=== PATIENT | female | born 1940 | race Caucasian/White ===

== ENCOUNTER 2016-09-03 06:16 | Emergency (ER) | payer MEDICARE ==
--- NOTE | ~2016-09-03 | CR72 ---
[facility] A Service of [facility] & [facility] RADIOLOGY TEXT RESULTS PATIENT: FAB WALDEN LOCATION: SED : 39 UNIT #: [id number] AGE: [address]: Pool Swain MD SEX: F ORDER DR: [id number] [address] [address] [id number] E MR#: [id number] Acc #: [id number] NAME: FAB WALDEN : 1940 SEX: F STUDY DATE/TIME: 09/03/2016 6:52 UNIT: SED ROOM: STUDY DESCRIPTION: CR Chest Single View Portable Attending Physician: Pool Swain M.D. Ordering Physician: Pollo Golden M.D. MEDICAL IMAGING REPORT This report is preliminary unless electronic signature is present. EXAM Portable chest, one view, 09/03/2016 COMPARISON 07/18/2015 HISTORY Short of air. Chest tightness for 2 weeks. FINDINGS There is a mzmkw-dj-awhpxora left pleural effusion. There is mild vascular congestion. No other consolidation is seen and there is no pneumothorax. Question mild cardiomegaly. Dictated by... Jarred Arroyo M.D. THIS IS AN ELECTRONICALLY VERIFIED REPORT Jarred Arroyo M.D. at 09/03/2016 3:57 PM TEV/aa TD: 09/03/2016 13:39 JOB #: [id number] MEDICAL IMAGING REPORT Page 1 of 1
[2016-09-03] MEDS ORDERED: METOPROLOL SUCC50 MG PO (06:26)
[2016-09-03] MEDS ORDERED: LASIX20 MG PO (06:27)
[2016-09-03] MEDS ORDERED: PRINIVIL20 M1 PO (06:27)
[2016-09-03] MEDS ORDERED: AMITRIPTYLINE H50 MG PO (06:28)
[2016-09-03] MEDS ORDERED: SULAR34 MG PO (06:28)
[2016-09-03] MEDS ORDERED: ZITHROMAX1 GM PO (08:12)
[2016-09-03] MEDS ORDERED: MUCINEX100 MG PO (08:13)
== END 2016-09-03 08:21 | disposition home or self-care (01) ==
LOC: SED 06:16
DX: J20.9 Acute bronchitis, unspecified (principal); J90 Pleural effusion, not elsewhere classified; I10 Essential (primary) hypertension; F41.9 Anxiety disorder, unspecified; F17.200 Nicotine dependence, unspecified, uncomplicated; Z88.6 Allergy status to analgesic agent; Z79.899 Other long term (current) drug therapy
CPT/HCPCS: 71010; 99284

== ENCOUNTER 2016-09-19 00:19 | Emergency (ER) | payer MEDICARE ==
--- NOTE | ~2016-09-19 | EKG ---
PATIENT: FAB WALDEN UNIT #: [id number] Ventricular Rate: 78 BPM Atrial Rate: 78 BPM P-R Interval: 124 ms QRS Duration: 116 ms Q-T Interval: 434 ms QTC Calculation(Bezet): 494 ms P [place]: 57 degrees Calculated R [place]: 3 degrees Calculated T [place]: -11 degrees Diagnosis Line: Normal sinus rhythm Diagnosis Line: Inferior-posterior infarct , age undetermined Diagnosis Line: Abnormal ECG Diagnosis Line: No previous ECGs available Diagnosis Line: Confirmed by MELITA ARRIOLA MD ([id number]) on Diagnosis Line: 09/20/2016 8:03:41 AM INTERPRETING MD: FLAKO NARAYANAN
--- NOTE | ~2016-09-19 | CR72 ---
[facility] A Service of [facility] & [facility] RADIOLOGY TEXT RESULTS PATIENT: FAB WALDEN LOCATION: SED : 39 UNIT #: [id number] AGE: [address]: Pollo Golden MD SEX: F ORDER DR: [id number] [address] [address] [id number] E MR#: [id number] Acc #: [id number] NAME: FAB WALDEN : 1940 SEX: F STUDY DATE/TIME: 09/19/2016 0:54 UNIT: SED ROOM: STUDY DESCRIPTION: CR Chest Single View Portable Attending Physician: Pollo Golden M.D. Ordering Physician: Pollo Golden M.D. MEDICAL IMAGING REPORT This report is preliminary unless electronic signature is present. EXAM Single view chest INDICATION Shortness of air and dyspnea. Hypoxia. 1-day duration. FINDINGS Single portable AP view chest compared with 09/03/2016. The heart and mediastinal contours are unchanged. Heart is enlarged. There is mild interstitial edema and bibasilar airspace opacity/pleural effusions. The effusions appear to have slightly increased since the prior study. IMPRESSION 1. Increasing bibasilar airspace opacities and/or pleural effusions. 2. Increased interstitial markings suggest a component of interstitial edema. This appearance is fairly similar to the prior study. Dictated by... Lee Toribio M.D. THIS IS AN ELECTRONICALLY VERIFIED REPORT Lee Toribio M.D. at 09/19/2016 3:34 AM GUMARO/alicia TD: 09/19/2016 02:44 JOB #: [id number] MEDICAL IMAGING REPORT Page 1 of 1
[~2016-09-19 00:19] MED LIST: AMITRIPTYLINE H50 MG PO; LASIX20 MG PO; METOPROLOL SUCC50 MG PO; MUCINEX100 MG PO; PRINIVIL20 M1 PO; SULAR34 MG PO; ZITHROMAX1 GM PO
== END 2016-09-19 02:18 | disposition left against medical advice (07) ==
LOC: SED 00:19
DX: J44.1 Chronic obstructive pulmonary disease with (acute) exacerbation (principal); I11.0 Hypertensive heart disease with heart failure; I50.9 Heart failure, unspecified; F17.200 Nicotine dependence, unspecified, uncomplicated; Z88.8 Allergy status to other drugs, medicaments and biological substances; Z88.1 Allergy status to other antibiotic agents; Z79.899 Other long term (current) drug therapy
CPT/HCPCS: 71010; 93005; 94640; 99285

== ENCOUNTER 2016-11-03 12:50 | Inpatient (IN) | payer MEDICARE ==
[~2016-11-03] VITALS: Ht 165.1 cm; Wt 74.6 kg
--- NOTE | ~2016-11-03 | CR63 ---
[facility] A Service of [facility] / [facility] RADIOLOGY TEXT RESULTS PATIENT: FAB WALDEN LOCATION: A 314-01 : 39 UNIT #: [id number] AGE: [address]: Ke Walters MD SEX: F ORDER DR: [id number] [address] [address] [id number] E MR#: [id number] Acc #: [id number] NAME: FAB WALDEN : 1940 SEX: F STUDY DATE/TIME: 11/03/2016 15:23 UNIT: SED ROOM: STUDY DESCRIPTION: CR Chest 2 View Attending Physician: Noam Harden M.D. Ordering Physician: Noam Harden M.D. MEDICAL IMAGING REPORT This report is preliminary unless electronic signature is present. EXAM PA and lateral radiographs of the chest HISTORY COPD. Congestion, cough Friday. FINDINGS PA and lateral radiographs of the chest are presented. Comparison 09/19/2016. Poor quality examination. On the lateral view, there are triangular radiodensities superimposed over the upper thorax clearly extrinsic to the patient but of unclear exact etiology. Clothing artifacts overlie the frontal image. Degenerative changes in the spine. No acute-appearing bony abnormality. Stable cardiac enlargement. Lungs are well inflated. Airspace disease bilateral lower lung zones. This may represent some degree of atelectasis. Bibasilar pneumonia is a strong consideration. There is a left pleural effusion and a smaller, probable right posterior pleural effusion. Airspace disease in the lower lung zones decreased on the right compared to prior examination. Short-interval followup to confirm complete resolution of findings is strongly recommended. If findings do not resolve in the near-term with treatment for presumed bilateral bibasilar pneumonia, then CT examination would be recommended for additional characterization. Stable appearance of densely calcified granuloma right lung base posteriorly. Dictated by... Pollo Logan M.D. THIS IS AN ELECTRONICALLY VERIFIED REPORT Pollo Logan M.D. at 11/04/2016 3:16 PM [facility] A Service of [facility] RADIOLOGY TEXT RESULTS PATIENT: FAB WALDEN LOCATION: A 314-01 : 39 UNIT #: [id number] AGE: [address]: Ke Walters MD SEX: F ORDER DR: Sotero TD: 11/03/2016 18:27 JOB #: [id number] MEDICAL IMAGING REPORT Page 1 of 1
--- NOTE | ~2016-11-03 | CO ---
Unit #: [id number] #: [id number] Patient: FAB WALDEN [id number] [facility] [address] [facility]. [place], [place] [address] [id number] I MR#: [id number] NAME: FAB WALDEN ROOM: 314 Age: 76 Sex: F Admission Date: 11/03/2016 : 1940 Attending Physician: Ke Walters M.D. Consultation Date: 11/04/2016 CONSULTATION REPORT HISTORY OF PRESENT ILLNESS This is a 76-year-old with history of CHF, hypertension, and anxiety. Anticoagulation was discharged after congestive heart failure exacerbation. The patient was at [place] for 2.5 weeks ago, had right middle lobe pneumonia, congestive heart failure exacerbation, and acute CHF. Now, the patient had persistent shortness of breath, really no significant improvement at home, and is currently on treatment for HCAP with cefepime and vancomycin. Chest x-ray shows bibasilar infiltrates. Airspace disease in bilateral lower lobes. Procalcitonin is elevated to 2.35. The patient also has BNP of 563. So, therefore she is being admitted for COPD exacerbation. Hospital acquired pneumonia and CHF exacerbation. PAST MEDICAL HISTORY Significant for history of pneumonia, history of COPD, sees Dr. Miranda, history of chronic respiratory failure on 2 L of oxygen, congestive heart failure with unknown ejection fraction, hypertension, anxiety with panic attacks and agoraphobia, chronic anticoagulation. PAST SURGICAL HISTORY None. SOCIAL HISTORY The patient quit smoking several weeks ago, walks with a walker. She denies any alcohol. Denies polysubstance use. FAMILY HISTORY Noncontributory. ALLERGIES The patient is allergic to aspirin. MEDICATION RECONCILIATION Includes Lasix 40 mg daily, metoprolol 25 mg daily, Valium 5 mg every morning and 2.5 mg at bedtime, K-Dur 20 mEq daily, warfarin 2 mg daily, amiodarone 200 mg daily. PHYSICAL EXAMINATION VITAL SIGNS: T-current 97.8, pulse 59, respiratory rate 20, saturation 95%, blood pressure 126/47. HEENT: Extraocular movements are intact. CHEST: Clear to auscultation bilaterally. CARDIOVASCULAR: Regular rate. No gallop. ABDOMEN: Soft, nontender, and nondistended. Unit #: [id number] #: [id number] Patient: FAB WALDEN EXTREMITIES: Edema +1. LABORATORY DATA Procalcitonin 2.35. BNP is 563. BUN and creatinine 23/2.0. Calcium 8.6, albumin 3.0, glucose 156, bicarb 27. ASSESSMENT CBC is 6.3, hemoglobin 10.9, and platelets of 212. 1. Chronic obstructive pulmonary disease exacerbation. 2. Congestive heart failure exacerbation. 3. Pneumonia. 4. Chronic kidney disease, unchanged, appears to be at baseline. The CK, CK-MB, and troponin are negative x2. Continue to treat pneumonia. Continue to treat antibiotics. We are going to do a viral respiratory swab. We are going to do an MRSA nasal swab. We are going to do a portable chest x-ray in a.m. and we are going to continue blood count and multiple cultures. 5. We are going to add budesonide and 3% saline to help with expectoration. Thank you very much for this consult and allowing us to participate in the care of this patient. Please page me at [phone] if you have any questions. Dictated by... Gold Whitman M.D. MANUEL/mendel TD: 11/05/2016 06:41 JOB #: [id number] CONSULTATION REPORT Page 1 of 1 X Casimiro Whitman MD CONSULTATION REPORT
--- NOTE | ~2016-11-03 | CR72 ---
[facility] A Service of [facility] & [facility] RADIOLOGY TEXT RESULTS PATIENT: FAB WALDEN LOCATION: [facility] 314-01 : 39 UNIT #: [id number] AGE: [address]: Ke Walters MD SEX: F ORDER DR: [id number] [facility] [address] [facility]. [place], [place] [address] [id number] I MR#: [id number] Acc #: [id number] NAME: FAB WALDEN : 1940 SEX: F STUDY DATE/TIME: 11/05/2016 5:36 [facility]: [facility] STUDY DESCRIPTION: CR Chest Single View Portable Attending Physician: Ke Walters M.D. Ordering Physician: Ke Walters M.D. MEDICAL IMAGING REPORT This report is preliminary unless electronic signature is present EXAM Portable AP view of the chest COMPARISON November 03, 2016, September 19, 2016, September 03, 2016. INDICATION 76-year-old female with dyspnea, cough, and lower extremity edema for 2 days. History of COPD, CHF, and atrial fibrillation. Hypertension. FINDINGS There is improved opacity in the right lung base with improved aeration of the right lung, most in keeping with resolving atelectasis. Large calcified granuloma again seen in the right lung base. There is also improved aeration at the left lung base, likely reflecting improving atelectasis, or possibly there could be improving pulmonary edema in both lung bases, as there is diffuse pulmonary vascular congestion and cardiomegaly. Small left pleural effusion may be slightly diminished from comparison of 2 days ago. Dictated by... Fer Edgar M.D. THIS IS AN ELECTRONICALLY VERIFIED REPORT Fer Edgar M.D. at 11/08/2016 11:24 AM Tuan TD: 11/05/2016 12:34 JOB #: [id number] MEDICAL IMAGING REPORT Page 1 of 1 COPY
--- NOTE | ~2016-11-03 | HP ---
Unit #: [id number] #: [id number] Patient: FAB WALDEN [id number] [address] [id number] I MR#: [id number] NAME: FAB WALDEN ROOM: 314 Age: 76 Sex: F Admission Date: 11/03/2016 : 1940 Attending Physician: Ke Walters M.D. HISTORY AND PHYSICAL ADDENDUM ADDITIONAL INFORMATION PAST MEDICAL HISTORY Atrial fibrillation on chronic anticoagulation with Coumadin. Dictated by Miranda Preston/mayank TD: 11/04/2016 06:38 JOB #: [id number] HISTORY AND PHYSICAL Page 1 of 1 X Lisha Duvall MD HISTORY AND PHYSICAL
--- NOTE | ~2016-11-03 | EKG ---
PATIENT: FAB WALDEN UNIT #: [id number] Ventricular Rate: 74 BPM Atrial Rate: 74 BPM P-R Interval: 134 ms QRS Duration: 122 ms Q-T Interval: 504 ms QTC Calculation(Bezet): 559 ms P [place]: 4 degrees Calculated R [place]: 73 degrees Calculated T [place]: 12 degrees Diagnosis Line: Normal sinus rhythm Diagnosis Line: Indeterminate axis Diagnosis Line: Right bundle branch block Diagnosis Line: Lateral infarct , age undetermined Diagnosis Line: Inferior infarct (cited on or before 19-SEP-2016) Diagnosis Line: Abnormal ECG Diagnosis Line: When compared with ECG of 19-SEP-2016 01:01, Diagnosis Line: Right bundle branch block is now Present Diagnosis Line: Lateral infarct is now Present Diagnosis Line: Confirmed by MELITA ARRIOLA MD ([id number]) on Diagnosis Line: 11/06/2016 8:22:57 AM INTERPRETING MD: FLAKO NARAYANAN
--- NOTE | ~2016-11-03 | HP ---
Unit #: [id number] #: [id number] Patient: FAB WALDEN [id number] [facility]. [place], [place] [address] [id number] I MR#: [id number] NAME: FAB WALDEN ROOM: 314 Age: 76 Sex: F Admission Date: 11/03/2016 : 1940 Attending Physician: Lisha Duvall M.D. HISTORY AND PHYSICAL CHIEF COMPLAINT Congestion, cough. HISTORY OF PRESENT ILLNESS The patient is a 76-year-old female with past medical history of COPD, CHF, chronic respiratory failure, hypertension, anxiety, chronic anticoagulation, who presented to [facility] for evaluation of the above. Of note, the patient was [facility] for pneumonia (no records). She was discharged on prednisone and an unknown antibiotic which she completed as prescribed. The patient states that she has had at least a three-day history of worsening shortness of breath and productive cough. She denies any fever. No chest pain. She has noted increased swelling of her legs. She does not typically weigh herself. She does not know if she has gained weight. She states that her appetite has been good. She has been taking her medications as prescribed. In the emergency department, I was told that her oxygen saturation was in the seventies on room air. I do not see it documented in [facility]. On the triage sheet, it states that it was 95% on two liters. Chest x-ray shows bibasilar atelectasis versus infiltrate with bilateral pleural effusions. BNP was 563. Laboratory notable for BUN and creatinine of 20 and 2.1 respectively. She was given 125 mg of Solu-Medrol as well as a milligram of Ativan in the emergency department. She was sent to [facility] for evaluation and further treatment. PAST MEDICAL HISTORY 1. Admission to [facility] in September of 2016 for pneumonia (no records). She was discharged home on an unknown antibiotic as well as steroids which she took as prescribed. 2. COPD. The patient has see Dr. Miranda in the past but requests to see another pulmonary group. 3. Chronic respiratory failure on two liters of oxygen. 4. Congestive heart failure with unknown ejection fraction. 5. Hypertension. 6. Anxiety with panic attacks and agoraphobia. 7. Chronic anticoagulation. PAST SURGICAL HISTORY None. Unit #: [id number] #: [id number] Patient: FAB WALDEN SOCIAL HISTORY The patient states that she quit smoking a couple of weeks ago. She walks with a walker. HOME MEDICATIONS 1. Potassium 20 mEq daily. 2. Coumadin 2 mg daily. 3. Furosemide 40 mg daily. 4. Amiodarone 200 mg daily. 5. Diazepam 5 mg bid 6. Metoprolol 25 mg daily. Home medications will need to be reviewed and verified. ALLERGIES Aspirin. REVIEW OF SYSTEMS A complete review of systems is negative except as indicated in the HPI. PHYSICAL EXAMINATION GENERAL APPEARANCE: The patient is a female who is awake and alert, chronically ill appearing. VITAL SIGNS: Temperature 98.1. Pulse 76. Respirations 16. Blood pressure 144/69. Oxygen saturation 95% on two liters. HEENT: The head is atraumatic. Mucous membranes are moist. NECK: Supple. Trachea is midline. CARDIOVASCULAR: Regular rate and rhythm. LUNGS: Decreased breath sounds bilaterally. Breathing is mildly labored with conversation. ABDOMEN: Soft, nontender with bowel sounds present in all four quadrants. EXTREMITIES: 1+ pitting edema. NEUROLOGIC: The patient is awake and alert. She follows commands. PSYCHIATRIC: The patient is quite anxious. She is cooperative. SKIN: Of examined areas is warm and dry. DIAGNOSTIC STUDIES LABORATORY: Comprehensive metabolic panel notable for BUN and creatinine of 20 and 2.1 respectively. Complete blood count notable for hemoglobin of 11.9. Troponin is less than 0.05. Arterial blood gas shows pH of 7.46, pCO2 of 40, pO2 95. INR is 2.2. BNP 563. IMAGING: Chest x-ray shows bibasilar atelectasis versus infiltrate with bilateral pleural effusions. CARDIOVASCULAR: EKG shows normal sinus rhythm with rate of 74 beats per minute. ASSESSMENT The patient is a 76-year-old female with: 1. Acute on chronic respiratory failure, hypoxic. 2. COPD exacerbation with possible pneumonia. The patient received 125 mg of Solu-Medrol in the emergency department. 3. CHF exacerbation with bilateral pleural effusions. BNP is 563. The patient has an unknown ejection fraction. There is no echocardiogram in [facility]. 4. Acute kidney injury. The patient's creatinine is 2.1 with no baseline for comparison. Home medications will need to be reviewed Unit #: [id number] #: [id number] Patient: FAB WALDEN and verified. Furosemide is listed which could be contributing to acute kidney injury. 5. Hypertension. 6. Anxiety with history of agoraphobia and panic attacks. 7. Chronic anticoagulation with an INR of 2.2. PLAN 1. Admit to intermediate level. 2. Two gram sodium, 1800 mL fluid restricted, Heart Healthy diet, if passes bedside swallow. 3. Supplemental oxygen, two to four liters, for saturations greater than 92%. 4. DuoNeb q.4 hours. 5. Solu-Medrol 80 mg IV q.12 hours. 6. Vancomycin IV and Zosyn IV for possible healthcare-associated pneumonia pending further workup. I have not ordered tobramycin due to acute kidney injury. 7. Procalcitonin level. 8. Streptococcal and legionella urine antigens. 9. Mucinex 600 mg p.o. b.i.d. 10. 2-D echo for further evaluation of CHF. 11. Strict Is and Os. 12. Serial cardiac enzymes. 13. TSH. 14. Check CPK. 15. Consult Chest Medicine regarding acute on chronic respiratory failure, COPD, possible pneumonia. 16. Get records from [facility]. 17. Repeat labs in the morning including INR. 18. Additional workup and consultants based on above. Dictated by Miranda Preston/mayank TD: 11/04/2016 06:11 JOB #: [id number] HISTORY AND PHYSICAL Page 1 of 1 X Lisha Duvall MD X HISTORY AND PHYSICAL
--- NOTE | ~2016-11-03 | DS ---
Unit #: [id number] #: [id number] Patient: FAB WALDEN [id number] [facility]. [place], [place] [address] [id number] I MR#: [id number] NAME: FAB WALDEN ROOM: 314 Age: 76 Sex: F Admission Date: 11/03/2016 : 1940 Discharge Date: Attending Physician: Ke Walters M.D. DISCHARGE SUMMARY PRIMARY DIAGNOSIS Acute on chronic hypoxemic respiratory failure. SECONDARY DIAGNOSES 1. Chronic kidney disease stage 4 with a baseline creatinine of 2. 2. Acute on chronic diastolic heart failure. 3. Moderate to severe mitral regurgitation. 4. Possible pneumonia. 5. Chronic anxiety with panic attacks. 6. Atrial fibrillation. 7. Possible acute exacerbation of chronic obstructive pulmonary disease. HOSPITAL COURSE Patient was admitted to the hospital for worsening respiratory failure. The patient was stable on two to three liters of oxygen for over 24 hours prior to discharge. Her chest x-ray improved fairly rapidly leading me to suspect that the patient's valvular heart disease and diastolic heart failure exacerbation were the primary components leading to her worsening hypoxia. The patient was extensively counseled about sodium in her diet. Echocardiogram done at our hospital showed severe mitral regurgitation as opposed to one done at [place] last month which showed only mild to moderate. 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 I have advised the patient to follow up with the arabic translator that saw her at [place] or one of his partners as she reports that his partners' offices are closer and easier for her to get to. 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 Patient had significant anxiety and panic attacks which are the major contributors to her symptomatology normally. She asked me multiple times on multiple days to add Ativan to her home regime which I explained was probably not in her best interest and any such change would have to be made by the physician managing her current anxiety medication at home which she reports is nurse practitioner Jada Appiah. The patient does have chronic kidney disease with a creatinine of 2. This is unchanged from her recent hospitalization at [place] per my review of their records from September 2016. Patient denies having an established bed laster, and consideration should be made for outpatient referral. Overall, this patient has multiple chronic medical conditions including some very difficult to control anxiety and appears to live alone with minimal social support and only gets around by wheelchair and walker and Unit #: [id number] #: [id number] Patient: FAB WALDEN does not drive herself in town. All in all, the patient has somewhat limited ability to understand her complex medical conditions, especially the way that they interact, and patient will need close followup with her PCP to help minimize risks of recurrent hospitalizations. I have spent an extensive amount of time attempting to eligibility counselor the patient, although it is unclear how much is going to be retained. I tried to focus her on the importance of her sodium restriction and the importance of following up with Dr. Chu as the main topics at the time of discharge as it did not seem that she was holding onto everything that I was trying to tell her. Due to her multiple medical issues and her limited understanding of them and limited social support, she is a high risk for readmission. C[employer] TIP[employer] Dr. Gold Whitman with Pulmonology. DISCHARGE DISPOSITION Home. DISCHARGE STATUS Stable. DISCHARGE ACTIVITY With her walker at all times. She may use the wheelchair that she already has as needed. DISCHARGE DIET A 2000 mg sodium restriction. DISCHARGE FOLLOWUP 1. With Dr. Eric Chu with Cardiology or one of his partners in two to four weeks. 2. With Dr. Miranda with Pulmonology in four to six weeks. 3. With nurse practitioner Jada Appiah in one week. DISCHARGE MEDICATIONS 1. Albuterol by nebulizer unit dose 3 mL q.4 hours p.r.n. shortness of breath. 2. Pulmicort 0.5 mg by nebulizer twice daily. 3. Prednisone 40 mg p.o. daily for 5 days. 4. Amiodarone 200 mg p.o. daily. 5. Coumadin 2 mg p.o. daily. 6. Valium 5 mg p.o. in the morning and 2.5 mg p.o. at bedtime. 7. Metoprolol succinate 25 mg p.o. daily. 8. Lasix 40 mg p.o. b.i.d. 9. Potassium chloride 20 mEq p.o. daily. 10. Omnicef 300 mg p.o. twice daily for 5 days. 1. Dictated by... Miranda Lowry/kingston TD: 11/05/2016 17:24 JOB #: [id number] Unit #: [id number] #: [id number] Patient: FAB WALDEN DISCHARGE SUMMARY Page 1 of 1 X eK Walters MD X DISCHARGE SUMMARY
[2016-11-03 14:13] LABS: BASOPHIL# 0.1 X10e3 (0-0.3); BASOPHIL% 0.9 % (0-2.5); EOSINOPHIL# 0.1 X10e3 (0-0.7); EOSINOPHIL% 0.6 % (0.0-7.0); HEMATOCRIT 35.9 % (35.0-45.0); HEMOGLOBIN 11.9 gm/dL (12.0-16.0); LYMPHOCYTE# 1.2 X10e3 (1.0-3.5); LYMPHOCYTE% 14.1 % (17.0-45.0); MEAN CELL VOLUME 89.2 FL (83-96); MEAN CORPUSCULAR HEMOGLOBIN 29.5 PG (28-34); MEAN CORPUSCULAR HGB CONC 33.1 g/dL (30-36); MEAN PLATELET VOLUME 9.7 FL (6.5-11.5); MONOCYTE# 1.2 X10e3 (0-1.0); MONOCYTE% 14.1 % (3.0-12.0); NEUTROPHIL# 5.8 X10e3 (1.5-7.1); NEUTROPHIL% 70.3 % (40-75); PLATELET COUNT 225 X10e3 (140-420); RED BLOOD COUNT 4.02 X10e (3.90-5.30); WHITE BLOOD COUNT 8.3 X10e3 (4.0-10.5)
[2016-11-03 14:18] LABS: POC - CKMB 2.4 ng/mL (0.0-7.9); POC - TROPONIN <0.05 ng/mL (<=0.05)
[2016-11-03 14:36] LABS: DIFF IND NO
[2016-11-03 14:39] LABS: INR 2.2; PROTHROMBIN TIME (PATIENT) 24.5 SECONDS (9.5-12.4)
[2016-11-03 14:46] LABS: PARTIAL THROMBOPLASTIN TIME 31.3 SECONDS (25.6-38.1)
[2016-11-03 14:47] LABS: ARTERIAL BLOOD GAS CARBOXY HB 1.5 %sat (0.0-9.0); ARTERIAL BLOOD GAS HCO3 27.9 mmol/L
[2016-11-03 14:48] LABS: ALBUMIN SERUM 3.5 g/dL (3.5-5.0); BILIRUBIN, DIRECT 0.1 mg/dL (0.0-0.2); BILIRUBIN,INDIRECT 0.3 mg/dL (0.0-0.9); BILIRUBIN,TOTAL 0.4 mg/dL (0.2-2.0); BUN/CREATININE RATIO 9.52; CALCIUM SERUM 9.4 mg/dL (8.4-10.2); CREATININE SERUM 2.1 mg/dL (0.6-1.4); GLOM FILT RATE Estimated 22.1 mL/min (>60); POTASSIUM 4.2 mmol/L (3.5-5.1); PROTEIN TOTAL SERUM 7.3 g/dL (6.0-8.3)
[2016-11-03 14:49] LABS: ARTERIAL BLOOD GAS ALLEN TEST Y; ARTERIAL DRAW? YES
[2016-11-03 14:50] LABS: ARTERIAL BLOOD GAS ART SITE RIGHT RADIAL
[2016-11-03 16:20] LABS: POC - CKMB 2.5 ng/mL (0.0-7.9)
[2016-11-03 16:21] LABS: POC - TROPONIN <0.05 ng/mL (<=0.05)
[2016-11-03] MEDS ORDERED: METOPROLOL SUCC25 MG PO (23:00)
[2016-11-03] MEDS ORDERED: VALIUM2 M1 PO (23:02)
[2016-11-03] MEDS ORDERED: VALIUM2 MG PO (23:03)
[2016-11-03] MEDS ORDERED: K-DUR20 ME1 PO (23:03)
[2016-11-03] MEDS ORDERED: AMIODARONE HCL200 MG PO (23:04)
[2016-11-03] MEDS ORDERED: WARFARIN SODIUM2 M1 PO (23:04)
[2016-11-03 23:29] LABS: %MB 3.4 % (0.0-4.0); MB 3.2 ng/ml
[2016-11-04 02:33] LABS: BASOPHIL% 0.4 % (0-2.5); HEMATOCRIT 32.7 % (35.0-45.0); HEMOGLOBIN 10.9 gm/dL (12.0-16.0); LYMPHOCYTE# 0.5 X10e3 (1.0-3.5); MEAN CELL VOLUME 88.6 FL (83-96); MEAN CORPUSCULAR HEMOGLOBIN 29.6 PG (28-34); MEAN CORPUSCULAR HGB CONC 33.4 g/dL (30-36); MEAN PLATELET VOLUME 9.3 FL (6.5-11.5); MONOCYTE# 0.1 X10e3 (0-1.0); MONOCYTE% 2.3 % (3.0-12.0); NEUTROPHIL# 5.6 X10e3 (1.5-7.1); NEUTROPHIL% 89.3 % (40-75); PLATELET COUNT 212 X10e3 (140-420); RED BLOOD COUNT 3.69 X10e (3.90-5.30); RED CELL DISTRIBUTION WIDTH 13.9 % (11.0-15.5); WHITE BLOOD COUNT 6.3 X10e3 (4.0-10.5)
[2016-11-04 02:35] LABS: DIFF IND NO
[2016-11-04 03:15] LABS: BILIRUBIN,TOTAL 0.9 mg/dL (0.2-2.0); BUN/CREATININE RATIO 11.5; CALCIUM SERUM 8.6 mg/dL (8.4-10.2); GLOM FILT RATE Estimated 23.5 mL/min (>60)
[2016-11-04 03:20] LABS: %MB 4.1 % (0.0-4.0); MB 3.3 ng/ml
[2016-11-04 06:36] LABS: INR 1.9; PROTHROMBIN TIME (PATIENT) 20.4 SECONDS (10.0-11.7)
[2016-11-05 05:06] LABS: INR 2.5; PROTHROMBIN TIME (PATIENT) 27.4 SECONDS (10.0-11.7)
[2016-11-05 06:58] LABS: GLOM FILT RATE Estimated 23.5 mL/min (>60); POTASSIUM 4.5 mmol/L (3.5-5.1)
[2016-11-05] MEDS ORDERED: COMBIVENT U/D3 M1 INH (15:41)
[2016-11-05] MEDS ORDERED: PULMICORT0.5 MG/21 INH (15:43)
[2016-11-05] MEDS ORDERED: PREDNISONE PO (15:44)
[2016-11-05] MEDS ORDERED: OMNICEF300 M1 PO (15:47)
[2016-12-12] MEDS ORDERED: ATIVAN (20:01)
== END 2016-11-05 18:36 | disposition home or self-care (01) | DRG 291 ==
LOC: SED 12:50 → C3A PCU 17:29 → SED 17:29 → C3A PCU 19:40
PROVIDERS: Emergency Medicine; Family Medicine
PROC: B246ZZZ Ultrasonography of Right and Left Heart (ICD-10-PCS; principal; 2016-11-04)
DX: I13.0 Hypertensive heart and chronic kidney disease with heart failure and stage 1 through stage 4 chronic kidney disease, or unspecified chronic kidney disease (principal); I50.33 Acute on chronic diastolic (congestive) heart failure; J96.21 Acute and chronic respiratory failure with hypoxia; J18.9 Pneumonia, unspecified organism; N18.4 Chronic kidney disease, stage 4 (severe); N17.9 Acute kidney failure, unspecified; I34.0 Nonrheumatic mitral (valve) insufficiency; I48.91 Unspecified atrial fibrillation; Z79.01 Long term (current) use of anticoagulants; J44.0 Chronic obstructive pulmonary disease with (acute) lower respiratory infection; J44.1 Chronic obstructive pulmonary disease with (acute) exacerbation; F40.01 Agoraphobia with panic disorder; I25.2 Old myocardial infarction; F17.200 Nicotine dependence, unspecified, uncomplicated
CPT/HCPCS: 36415; 36600; 71010; 71020; 80048; 80053; 80076; 80202; 82308; 82550; 82553; 82803; 83874; 83880; 84443; 84484; 85025; 85610; 85730; 87040; 87070; 93005; 93306; 94640; 94760; 96374; 99291; J0692; J2060; J2543; J2920; J2930; J3370